=== PATIENT | female | born 1950 | race Caucasian/White ===

== ENCOUNTER → 2016-09-30 | Outpatient (CLI) | payer MEDICARE ==
[~2016-09-30] MED LIST: ASPI-496 PO; GABA300C10 PO; HYDR-3138 PO; LOSA100T6 PO; LOVA20TA2 PO
== END | disposition home or self-care (01) ==
LOC: PETCFH 07:45
PROVIDERS: ATTEND Specialist
DX: C78.01 Secondary malignant neoplasm of right lung (principal); M80.08XA Age-related osteoporosis with current pathological fracture, vertebra(e), initial encounter for fracture
CPT/HCPCS: 78306; A9503

== ENCOUNTER → 2016-09-30 | Outpatient (CLI) | payer MEDICARE ==
[~2016-09-30] MED LIST changes: +OMNIPAQUE 350 MG/ML, 100ML BOTTLE ONE
== END | disposition home or self-care (01) ==
LOC: CFH 07:44
PROVIDERS: ATTEND Specialist
DX: C78.01 Secondary malignant neoplasm of right lung (principal); C80.1 Malignant (primary) neoplasm, unspecified; J90 Pleural effusion, not elsewhere classified; N28.1 Cyst of kidney, acquired
CPT/HCPCS: 74177; Q9967

== ENCOUNTER → 2016-12-25 | Outpatient (CLI) | payer MEDICARE ==
[~2016-12-25] MED LIST changes: -HYDR-3138 PO; +HYDR-3237 PO; -OMNIPAQUE 350 MG/ML, 100ML BOTTLE ONE
== END | disposition home or self-care (01) ==
LOC: ROC 11:12 → EDSTATUS 13:53
PROVIDERS: ATTEND Radiology Radiation Oncology
DX: C79.51 Secondary malignant neoplasm of bone (principal); C77.8 Secondary and unspecified malignant neoplasm of lymph nodes of multiple regions; I89.0 Lymphedema, not elsewhere classified; Z85.3 Personal history of malignant neoplasm of breast
CPT/HCPCS: G0463

== ENCOUNTER 2017-03-16 10:23 | Inpatient (IN) | payer MEDICARE ==
[~2017-03-16] VITALS: Ht 157.5 cm; Wt 85.8 kg
[2017-03-16] MEDS ORDERED: ALBUTEROL SULFATE 2.5 MG/3 ML NPPB ONE (11:30)
[2017-03-16] MEDS ORDERED: SODIUM CHLORIDE FLUSH 10ML SYR IVF ONE (11:30)
[2017-03-16] MEDS ORDERED: ALBUTEROL/IPRATROPIUM 2.5MG/0.5MG, 3 ML NEB ONE (11:30)
[2017-03-16] MEDS ORDERED: IPRATROPIUM 0.5 MG/2.5 ML INHA NPPB ONE (11:30)
[2017-03-16] MEDS ORDERED: ALBUTEROL/IPRATROPIUM 2.5MG/0.5MG, 3 ML ONE (11:36)
[2017-03-16 12:28] LABS: HEMATOCRIT 29.6 % (34.6-47.8); HEMOGLOBIN 10.1 g/dL (11.7-16.4)
[2017-03-16 12:35] LABS: BLOOD UREA NITROGEN 19 mg/dL (7-18)
[2017-03-16 12:40] LABS: ASPARTATE AMINO TRANSFERASE 9 U/L (15-37)
[2017-03-16 12:43] LABS: IS PT STATUS REG ER OR PRE ER? YES
[2017-03-16] MEDS ORDERED: SODIUM CHLORIDE 0.9% 1,000 ML IV ONE (14:59)
[2017-03-16] MEDS ORDERED: SODIUM CHLORIDE FLUSH 10ML SYR IVF PRN (15:00)
[2017-03-16] MEDS ORDERED: DIAZEPAM 5 MG/ML, 2ML ONE (15:59)
[2017-03-16] MEDS ORDERED: DIAZEPAM 5 MG/ML, 2ML IV ONE (16:00)
[2017-03-16] MEDS ORDERED: LOVA40TA2 PO (16:02)
[2017-03-16] MEDS ORDERED: LETR2.5T PO (16:02)
[2017-03-16] MEDS ORDERED: CARV12.52 PO (16:02)
[2017-03-16] MEDS ORDERED: BUPR100T11 PO (16:02)
[2017-03-16] MEDS ORDERED: PARO20TA98 PO (16:02)
[2017-03-16] MEDS ORDERED: OXYC-307 PO (16:02)
[2017-03-16] MEDS ORDERED: DOCUSATE 100 MG CAPSULE PO PRN (17:00)
[2017-03-16] MEDS ORDERED: ACETAMINOPHEN 325 MG TABLET PO PRN (17:00)
[2017-03-16] MEDS ORDERED: BISACODYL 10 MG SUPP PR PRN (17:00)
[2017-03-16] MEDS ORDERED: PROMETHAZINE 25 MG/ML, 1ML IM PRN (17:00)
[2017-03-16] MEDS ORDERED: HYDROcodone/APAP 5/325 TABLET PO PRN (17:00)
[2017-03-16] MEDS ORDERED: POLYETHYLENE GLYCOL 17 GM PACKET PO PRN (17:00)
[2017-03-16] MEDS ORDERED: CEFTRIAXONE PMX 1GM/50ML 50 ML ONE (17:38)
[2017-03-16] MEDS: CEFTRIAXONE PMX 1GM/50ML 50 ML IV SCH (17:42)
[2017-03-16 17:51] LABS: IS PT STATUS REG ER OR PRE ER? YES
[2017-03-16 18:03] VITALS: BP 149/80
[2017-03-16 18:38] VITALS: BP 137/80
[2017-03-16] MEDS ORDERED: ALBUTEROL SULFATE 2.5 MG/3 ML ONE (19:55)
[2017-03-16] MEDS ORDERED: ALBUTEROL SULFATE 2.5 MG/3 ML NPPB PRN (20:30)
[2017-03-16] MEDS: CARVEDILOL 12.5 MG TABLET PO SCH (22:29)
[2017-03-16] MEDS: LOVASTATIN 40 MG TABLET PO SCH (22:29)
[2017-03-16] MEDS: FUROSEMIDE 20 MG/2 ML IV SCH (22:29)
[2017-03-16] MEDS: DOXYCYCLINE 100MG TABLET PO SCH (22:30)
[2017-03-16] MEDS: HEPARIN 5,000 UNITS/ML, 1ML SQ SCH (22:30)
[2017-03-16] MEDS: GABAPENTIN 300 MG CAPSULE PO SCH (22:30)
[2017-03-16] MEDS: LORazepam 2 MG/ML, 1ML IVPush PRN (22:31)
[2017-03-16] MEDS ORDERED: OMNIPAQUE 350 MG/ML, 100ML BOTTLE ONE (22:59)
[2017-03-16 23:10] LABS: IS PT STATUS REG ER OR PRE ER? NO
[2017-03-17] VITALS (7 sets, daily range): BP systolic 86–187; BP diastolic 46–111
[2017-03-17 04:47] LABS: BLOOD UREA NITROGEN 15 mg/dL (7-18)
[2017-03-17 04:52] LABS: HEMATOCRIT 29.1 % (34.6-47.8)
[2017-03-17 04:55] LABS: WHITE BLOOD COUNT 1.8 x10^3/uL (3.4-10)
[2017-03-17 04:58] LABS: ASPARTATE AMINO TRANSFERASE 13 U/L (15-37)
[2017-03-17] MEDS: HEPARIN 5,000 UNITS/ML, 1ML SQ SCH ×3 (05:40→22:30)
[2017-03-17 05:58] LABS: DIFF TOTAL CELLS COUNTED 100 CELL DIFF
[2017-03-17 06:01] LABS: ANISOCYTOSIS 1+; VERIFY COUNTS? YES
[2017-03-17 06:02] LABS: LARGE PLATELETS 1+; OVALOCYTES 1+
[2017-03-17] MEDS ORDERED: LABETALOL 5MG/ML, 20ML IVPush ONE (07:30)
[2017-03-17] MEDS: ALBUTEROL SULFATE 2.5 MG/3 ML NPPB SCH ×4 (08:00→20:00)
[2017-03-17] MEDS: FUROSEMIDE 20 MG/2 ML IV SCH ×2 (08:01→17:32)
[2017-03-17] MEDS ORDERED: LOSARTAN 50MG TABLET PO SCH (09:00)
[2017-03-17] MEDS: ASPIRIN 81 MG TABLET EC PO SCH (10:05)
[2017-03-17] MEDS: GABAPENTIN 300 MG CAPSULE PO SCH ×3 (10:05→22:30)
[2017-03-17] MEDS: PAROXETINE 20 MG TABLET PO SCH (10:05)
[2017-03-17] MEDS: CARVEDILOL 12.5 MG TABLET PO SCH (10:05)
[2017-03-17] MEDS: DOXYCYCLINE 100MG TABLET PO SCH (10:05)
[2017-03-17] MEDS: LETROZOLE 2.5 MG TABLET PO SCH (11:51)
[2017-03-17] MEDS: LORazepam 2 MG/ML, 1ML IVPush PRN ×2 (14:42→22:31)
[2017-03-17] MEDS: CEFTRIAXONE PMX 1GM/50ML 50 ML IV SCH (17:00)
[2017-03-17] MEDS: OXYcodone/APAP 10/325MG TABLET PO PRN (17:32)
[2017-03-17] MEDS ORDERED: POTASSIUM CHLORIDE 20 MEQ TAB.ER.PRT PO ONE (18:00)
[2017-03-17] MEDS: PIPERACILLIN/TAZO/PMX 3.375GM 50 ML IV SCH (18:14)
[2017-03-17] MEDS: LOVASTATIN 40 MG TABLET PO SCH (22:29)
[2017-03-18 01:42] VITALS: BP 153/81
[2017-03-18] MEDS: PIPERACILLIN/TAZO/PMX 3.375GM 50 ML IV SCH ×3 (02:03→16:49)
[2017-03-18 04:52] LABS: HEMATOCRIT 28.6 % (34.6-47.8); HEMOGLOBIN 9.8 g/dL (11.7-16.4); WHITE BLOOD COUNT 3.4 x10^3/uL (3.4-10)
[2017-03-18 05:05] LABS: ASPARTATE AMINO TRANSFERASE 13 U/L (15-37); BLOOD UREA NITROGEN 12 mg/dL (7-18)
[2017-03-18] MEDS: HEPARIN 5,000 UNITS/ML, 1ML SQ SCH ×3 (05:12→20:50)
[2017-03-18] MEDS: ALBUTEROL SULFATE 2.5 MG/3 ML NPPB SCH ×4 (07:06→20:00)
[2017-03-18 08:01] VITALS: BP 127/81
[2017-03-18] MEDS: LETROZOLE 2.5 MG TABLET PO SCH (08:26)
[2017-03-18] MEDS: FUROSEMIDE 20 MG/2 ML IV SCH (08:28)
[2017-03-18] MEDS: PAROXETINE 20 MG TABLET PO SCH (08:28)
[2017-03-18] MEDS: GABAPENTIN 300 MG CAPSULE PO SCH ×3 (08:28→20:50)
[2017-03-18] MEDS: ASPIRIN 81 MG TABLET EC PO SCH (08:28)
[2017-03-18 12:59] VITALS: BP 153/85
[2017-03-18] MEDS ORDERED: LIDOCAINE 1%, 20ML ONE (14:46)
[2017-03-18 15:37] LABS: CYTOLOGY BODY FLUID RECD INTO PATHOLOGY; CYTOLOGY BODY FLUID SOURCE THORACIC FLUID
[2017-03-18 19:45] VITALS: BP 113/76
[2017-03-18] MEDS: LOVASTATIN 40 MG TABLET PO SCH (20:50)
[2017-03-19 01:25] VITALS: BP 147/89
[2017-03-19] MEDS: PIPERACILLIN/TAZO/PMX 3.375GM 50 ML IV SCH ×3 (01:30→18:05)
[2017-03-19 04:46] LABS: HEMATOCRIT 28.4 % (34.6-47.8); HEMOGLOBIN 9.6 g/dL (11.7-16.4); WHITE BLOOD COUNT 2.8 x10^3/uL (3.4-10)
[2017-03-19 04:50] LABS: BLOOD UREA NITROGEN 13 mg/dL (7-18)
[2017-03-19] MEDS: HEPARIN 5,000 UNITS/ML, 1ML SQ SCH ×3 (05:00→20:04)
[2017-03-19] MEDS: LORazepam 2 MG/ML, 1ML IVPush PRN ×2 (06:04→20:04)
[2017-03-19] MEDS: ALBUTEROL SULFATE 2.5 MG/3 ML NPPB SCH ×4 (06:53→18:33)
[2017-03-19 07:42] VITALS: BP 134/18
[2017-03-19] MEDS: ASPIRIN 81 MG TABLET EC PO SCH (10:51)
[2017-03-19] MEDS: GABAPENTIN 300 MG CAPSULE PO SCH ×3 (10:51→20:04)
[2017-03-19] MEDS: PAROXETINE 20 MG TABLET PO SCH (10:51)
[2017-03-19] MEDS: LETROZOLE 2.5 MG TABLET PO SCH (10:55)
[2017-03-19 12:30] VITALS: BP 129/76
[2017-03-19 18:51] VITALS: BP 127/79
[2017-03-19] MEDS: LOVASTATIN 40 MG TABLET PO SCH (20:04)
[2017-03-20] MEDS: OXYcodone/APAP 10/325MG TABLET PO PRN
[2017-03-20 00:04] VITALS: BP 144/85
[2017-03-20] MEDS: PIPERACILLIN/TAZO/PMX 3.375GM 50 ML IV SCH ×3 (01:42→17:04)
[2017-03-20] MEDS: HEPARIN 5,000 UNITS/ML, 1ML SQ SCH ×3 (04:57→19:50)
[2017-03-20 05:53] LABS: BLOOD UREA NITROGEN 12 mg/dL (7-18)
[2017-03-20 06:08] LABS: HEMATOCRIT 27.2 % (34.6-47.8); HEMOGLOBIN 9.4 g/dL (11.7-16.4); WHITE BLOOD COUNT 3.1 x10^3/uL (3.4-10)
[2017-03-20 07:55] VITALS: BP 122/80
[2017-03-20] MEDS: ALBUTEROL SULFATE 2.5 MG/3 ML NPPB SCH (08:08)
[2017-03-20] MEDS: ASPIRIN 81 MG TABLET EC PO SCH (08:54)
[2017-03-20] MEDS: GABAPENTIN 300 MG CAPSULE PO SCH ×3 (08:55→19:50)
[2017-03-20] MEDS: PAROXETINE 20 MG TABLET PO SCH (08:55)
[2017-03-20] MEDS: LETROZOLE 2.5 MG TABLET PO SCH (09:28)
[2017-03-20] MEDS ORDERED: POTASSIUM CHLORIDE 20 MEQ TAB.ER.PRT PO ONE (10:30)
[2017-03-20 14:06] VITALS: BP 152/80
[2017-03-20] MEDS: LORazepam 2 MG/ML, 1ML IVPush PRN (18:48)
[2017-03-20] MEDS: LOVASTATIN 40 MG TABLET PO SCH (19:50)
[2017-03-20 20:07] VITALS: BP 141/81
[2017-03-21] MEDS: PIPERACILLIN/TAZO/PMX 3.375GM 50 ML IV SCH ×3 (01:08→17:28)
[2017-03-21 02:35] VITALS: BP 158/83
[2017-03-21 05:15] LABS: HEMATOCRIT 28.2 % (34.6-47.8); HEMOGLOBIN 9.7 g/dL (11.7-16.4); WHITE BLOOD COUNT 4.5 x10^3/uL (3.4-10)
[2017-03-21] MEDS: LORazepam 2 MG/ML, 1ML IVPush PRN ×2 (05:18→14:12)
[2017-03-21] MEDS: HEPARIN 5,000 UNITS/ML, 1ML SQ SCH ×3 (05:18→20:23)
[2017-03-21 05:21] LABS: BLOOD UREA NITROGEN 10 mg/dL (7-18)
[2017-03-21 07:52] VITALS: BP 144/82
[2017-03-21] MEDS: PAROXETINE 20 MG TABLET PO SCH (09:32)
[2017-03-21] MEDS: ASPIRIN 81 MG TABLET EC PO SCH (09:32)
[2017-03-21] MEDS: GABAPENTIN 300 MG CAPSULE PO SCH ×3 (09:32→20:22)
[2017-03-21] MEDS: LETROZOLE 2.5 MG TABLET PO SCH (09:37)
[2017-03-21] MEDS: OXYcodone/APAP 10/325MG TABLET PO PRN (12:16)
[2017-03-21 13:56] VITALS: BP 160/94
[2017-03-21] MEDS ORDERED: LOPERAMIDE 2 MG CAPSULE PO PRN (18:00)
[2017-03-21 18:44] VITALS: BP 146/85
[2017-03-21] MEDS: LOVASTATIN 40 MG TABLET PO SCH (20:22)
[2017-03-22] MEDS: LORazepam 2 MG/ML, 1ML IVPush PRN ×3 (00:11→19:40)
[2017-03-22] MEDS: PIPERACILLIN/TAZO/PMX 3.375GM 50 ML IV SCH ×4 (00:54→16:07)
[2017-03-22 00:56] VITALS: BP 135/81
[2017-03-22] MEDS: HEPARIN 5,000 UNITS/ML, 1ML SQ SCH ×3 (05:20→19:40)
[2017-03-22 07:44] VITALS: BP 156/98
[2017-03-22] MEDS: LETROZOLE 2.5 MG TABLET PO SCH (08:17)
[2017-03-22] MEDS: ASPIRIN 81 MG TABLET EC PO SCH (08:18)
[2017-03-22] MEDS: PAROXETINE 20 MG TABLET PO SCH (08:18)
[2017-03-22] MEDS: GABAPENTIN 300 MG CAPSULE PO SCH ×3 (08:18→19:40)
[2017-03-22 13:22] VITALS: BP 162/93
[2017-03-22] MEDS: LACTOBACILLUS CHEW TABLET PO SCH ×2 (17:33→19:40)
[2017-03-22 19:20] VITALS: BP 105/79
[2017-03-22] MEDS: LOVASTATIN 40 MG TABLET PO SCH (19:40)
[2017-03-23] MEDS: PIPERACILLIN/TAZO/PMX 3.375GM 50 ML IV SCH ×3 (00:48→17:01)
[2017-03-23 01:51] VITALS: BP 134/76
[2017-03-23] MEDS: HEPARIN 5,000 UNITS/ML, 1ML SQ SCH ×3 (05:20→20:46)
[2017-03-23] MEDS: OXYcodone/APAP 10/325MG TABLET PO PRN (05:21)
[2017-03-23] MEDS: LACTOBACILLUS CHEW TABLET PO SCH ×4 (05:21→20:46)
[2017-03-23] MEDS: ASPIRIN 81 MG TABLET EC PO SCH (08:25)
[2017-03-23] MEDS: GABAPENTIN 300 MG CAPSULE PO SCH ×3 (08:25→20:46)
[2017-03-23] MEDS: PAROXETINE 20 MG TABLET PO SCH (08:26)
[2017-03-23 08:32] VITALS: BP 134/83
[2017-03-23] MEDS: LETROZOLE 2.5 MG TABLET PO SCH (09:44)
[2017-03-23 12:17] VITALS: BP 136/81
[2017-03-23 19:50] VITALS: BP 136/86
[2017-03-23] MEDS: LORazepam 2 MG/ML, 1ML IVPush PRN (20:46)
[2017-03-23] MEDS: LOVASTATIN 40 MG TABLET PO SCH (20:46)
[2017-03-24 02:15] VITALS: BP 129/82
[2017-03-24 04:24] LABS: HEMATOCRIT 29.9 % (34.6-47.8); HEMOGLOBIN 10.2 g/dL (11.7-16.4); WHITE BLOOD COUNT 6.3 x10^3/uL (3.4-10)
[2017-03-24 04:31] LABS: BLOOD UREA NITROGEN 17 mg/dL (7-18)
[2017-03-24] MEDS: LACTOBACILLUS CHEW TABLET PO SCH ×4 (05:09→21:36)
[2017-03-24] MEDS: HEPARIN 5,000 UNITS/ML, 1ML SQ SCH ×3 (05:10→21:37)
[2017-03-24 08:15] VITALS: BP 140/85
[2017-03-24] MEDS: ASPIRIN 81 MG TABLET EC PO SCH (09:00)
[2017-03-24] MEDS: AMOXICILLIN/CLAV 875-125MG TABLET PO SCH ×2 (11:01→21:36)
[2017-03-24] MEDS: GABAPENTIN 300 MG CAPSULE PO SCH ×3 (11:02→21:36)
[2017-03-24] MEDS: PAROXETINE 20 MG TABLET PO SCH (11:02)
[2017-03-24] MEDS: LETROZOLE 2.5 MG TABLET PO SCH (11:06)
[2017-03-24 12:28] VITALS: BP 150/87
[2017-03-24] MEDS: OXYcodone/APAP 10/325MG TABLET PO PRN ×2 (12:36→18:00)
[2017-03-24] MEDS ORDERED: FENTANYL PF 100 MCG/2ML ONE (16:12)
[2017-03-24] MEDS ORDERED: MIDAZOLAM 1 MG/ML, 5ML ONE (16:13)
[2017-03-24] MEDS ORDERED: FLUMAZENIL 0.1 MG/1 ML, 5ML ONE (16:13)
[2017-03-24] MEDS ORDERED: NALOXONE 1 MG/ML, 2ML ONE (16:13)
[2017-03-24] MEDS ORDERED: LIDOCAINE 2%, 20ML ONE (16:15)
[2017-03-24 19:40] VITALS: BP 124/84
[2017-03-24] MEDS: LORazepam 2 MG/ML, 1ML IVPush PRN (20:00)
[2017-03-24] MEDS: LOVASTATIN 40 MG TABLET PO SCH (21:36)
[2017-03-24] MEDS: BUPROPION 75 MG TABLET PO SCH (21:36)
[2017-03-25 01:52] VITALS: BP 118/76
[2017-03-25] MEDS: HEPARIN 5,000 UNITS/ML, 1ML SQ SCH ×3 (04:50→20:10)
[2017-03-25] MEDS: OXYcodone/APAP 10/325MG TABLET PO PRN ×2 (04:50→18:17)
[2017-03-25] MEDS: LACTOBACILLUS CHEW TABLET PO SCH ×4 (05:58→20:09)
[2017-03-25 08:38] VITALS: BP 112/83
[2017-03-25] MEDS: LORazepam 2 MG/ML, 1ML IVPush ONE ×2 (09:14→09:36)
[2017-03-25] MEDS ORDERED: morphine SULFATE 10 MG/ML, 1ML ONE ×3 (09:29→11:28)
[2017-03-25] MEDS ORDERED: DOXYCYCLINE 500 MG in SODIUM CHLORIDE 0.9% 50 ML INTRAPL ONE (09:30)
[2017-03-25] MEDS ORDERED: LORazepam 2 MG/ML, 1ML IVPush ONE (09:30)
[2017-03-25] MEDS ORDERED: DOXYCYCLINE 500 MG in SODIUM CHLORIDE 0.9% 60 ML INTRAPL ONE (09:30)
[2017-03-25] MEDS ORDERED: LIDOCAINE 1%, 10ML INFIL ONE (09:30)
[2017-03-25] MEDS: LORazepam 2 MG/ML, 1ML IVPush PRN ×3 (09:36→23:58)
[2017-03-25] MEDS: MORPHINE SULFATE 4 MG/ML, 1ML IVPush PRN ×2 (10:46→11:31)
[2017-03-25] MEDS: LETROZOLE 2.5 MG TABLET PO SCH (13:23)
[2017-03-25] MEDS: GABAPENTIN 300 MG CAPSULE PO SCH ×3 (13:26→20:10)
[2017-03-25] MEDS: ASPIRIN 81 MG TABLET EC PO SCH (13:26)
[2017-03-25] MEDS: PAROXETINE 20 MG TABLET PO SCH (13:26)
[2017-03-25] MEDS: AMOXICILLIN/CLAV 875-125MG TABLET PO SCH ×2 (13:26→20:10)
[2017-03-25] MEDS: BUPROPION 75 MG TABLET PO SCH ×2 (13:26→20:10)
[2017-03-25 14:29] VITALS: BP 143/80
[2017-03-25 19:49] VITALS: BP 131/72
[2017-03-25] MEDS: LOVASTATIN 40 MG TABLET PO SCH (20:10)
[2017-03-26 01:13] VITALS: BP 127/81
[2017-03-26] MEDS: HEPARIN 5,000 UNITS/ML, 1ML SQ SCH ×3 (05:23→20:13)
[2017-03-26] MEDS: LACTOBACILLUS CHEW TABLET PO SCH ×4 (05:23→20:12)
[2017-03-26 08:27] VITALS: BP 125/80
[2017-03-26] MEDS: BUPROPION 75 MG TABLET PO SCH ×2 (10:12→20:12)
[2017-03-26] MEDS: AMOXICILLIN/CLAV 875-125MG TABLET PO SCH ×2 (10:12→20:12)
[2017-03-26] MEDS: ASPIRIN 81 MG TABLET EC PO SCH (10:12)
[2017-03-26] MEDS: GABAPENTIN 300 MG CAPSULE PO SCH ×3 (10:12→20:12)
[2017-03-26] MEDS: PAROXETINE 20 MG TABLET PO SCH (10:12)
[2017-03-26] MEDS: LETROZOLE 2.5 MG TABLET PO SCH (10:29)
[2017-03-26 12:59] VITALS: BP 130/80
[2017-03-26] MEDS: OXYcodone/APAP 10/325MG TABLET PO PRN (17:47)
[2017-03-26] MEDS: LORazepam 2 MG/ML, 1ML IVPush PRN (17:47)
[2017-03-26 19:04] VITALS: BP 125/83
[2017-03-26] MEDS: LOVASTATIN 40 MG TABLET PO SCH (20:12)
[2017-03-27 02:04] VITALS: BP 111/78
[2017-03-27] MEDS: LORazepam 2 MG/ML, 1ML IVPush PRN ×3 (02:13→21:40)
[2017-03-27] MEDS: HEPARIN 5,000 UNITS/ML, 1ML SQ SCH ×3 (05:46→22:15)
[2017-03-27] MEDS: LACTOBACILLUS CHEW TABLET PO SCH ×4 (05:46→21:20)
[2017-03-27 06:56] VITALS: BP 120/72
[2017-03-27] MEDS: LETROZOLE 2.5 MG TABLET PO SCH (10:03)
[2017-03-27] MEDS: ASPIRIN 81 MG TABLET EC PO SCH (10:04)
[2017-03-27] MEDS: AMOXICILLIN/CLAV 875-125MG TABLET PO SCH ×2 (10:04→21:20)
[2017-03-27] MEDS: BUPROPION 75 MG TABLET PO SCH ×2 (10:05→21:20)
[2017-03-27] MEDS: GABAPENTIN 300 MG CAPSULE PO SCH ×3 (10:05→21:20)
[2017-03-27] MEDS: PAROXETINE 20 MG TABLET PO SCH (10:05)
[2017-03-27 12:38] VITALS: BP 138/83
[2017-03-27] MEDS: OXYcodone/APAP 10/325MG TABLET PO PRN ×2 (14:30→21:40)
[2017-03-27 18:51] VITALS: BP 122/87
[2017-03-27] MEDS: LOVASTATIN 40 MG TABLET PO SCH (21:20)
[2017-03-28 01:37] VITALS: BP 114/79
[2017-03-28 04:27] LABS: HEMATOCRIT 27.7 % (34.6-47.8); HEMOGLOBIN 9.6 g/dL (11.7-16.4); WHITE BLOOD COUNT 5.5 x10^3/uL (3.4-10)
[2017-03-28 04:38] LABS: BLOOD UREA NITROGEN 24 mg/dL (7-18)
[2017-03-28] MEDS: LORazepam 2 MG/ML, 1ML IVPush PRN ×2 (04:40→18:51)
[2017-03-28] MEDS: LACTOBACILLUS CHEW TABLET PO SCH ×4 (06:04→20:27)
[2017-03-28] MEDS: HEPARIN 5,000 UNITS/ML, 1ML SQ SCH ×3 (06:05→21:38)
[2017-03-28 07:41] VITALS: BP 129/83
[2017-03-28] MEDS: GABAPENTIN 300 MG CAPSULE PO SCH ×3 (08:06→20:27)
[2017-03-28] MEDS: PAROXETINE 20 MG TABLET PO SCH (08:06)
[2017-03-28] MEDS: ASPIRIN 81 MG TABLET EC PO SCH (08:06)
[2017-03-28] MEDS: AMOXICILLIN/CLAV 875-125MG TABLET PO SCH ×2 (08:06→20:26)
[2017-03-28] MEDS: BUPROPION 75 MG TABLET PO SCH ×2 (08:06→20:27)
[2017-03-28] MEDS: LETROZOLE 2.5 MG TABLET PO SCH (08:10)
[2017-03-28 13:37] VITALS: BP 122/77
[2017-03-28 19:06] VITALS: BP 124/81
[2017-03-28] MEDS: OXYcodone/APAP 10/325MG TABLET PO PRN (20:27)
[2017-03-28] MEDS: LOVASTATIN 40 MG TABLET PO SCH (20:27)
[2017-03-29 01:42] VITALS: BP 130/80
[2017-03-29] MEDS: LACTOBACILLUS CHEW TABLET PO SCH ×4 (06:25→20:17)
[2017-03-29] MEDS: HEPARIN 5,000 UNITS/ML, 1ML SQ SCH ×3 (06:25→20:17)
[2017-03-29 07:49] VITALS: BP 139/81
[2017-03-29] MEDS: ASPIRIN 81 MG TABLET EC PO SCH (10:27)
[2017-03-29] MEDS: PAROXETINE 20 MG TABLET PO SCH (10:27)
[2017-03-29] MEDS: AMOXICILLIN/CLAV 875-125MG TABLET PO SCH ×2 (10:27→20:16)
[2017-03-29] MEDS: GABAPENTIN 300 MG CAPSULE PO SCH ×3 (10:27→20:16)
[2017-03-29] MEDS: BUPROPION 75 MG TABLET PO SCH ×2 (10:27→20:17)
[2017-03-29] MEDS: LETROZOLE 2.5 MG TABLET PO SCH (10:59)
[2017-03-29] MEDS: LORazepam 2 MG/ML, 1ML IVPush PRN ×2 (14:10→20:17)
[2017-03-29] MEDS: OXYcodone/APAP 10/325MG TABLET PO PRN ×2 (14:10→21:14)
[2017-03-29 15:48] VITALS: BP 117/76
[2017-03-29 19:06] VITALS: BP 114/76
[2017-03-29] MEDS: LOVASTATIN 40 MG TABLET PO SCH (20:17)
[2017-03-30] VITALS: BP 146/89
[2017-03-30 04:48] LABS: HEMATOCRIT 26.8 % (34.6-47.8); HEMOGLOBIN 9.1 g/dL (11.7-16.4); WHITE BLOOD COUNT 4.7 x10^3/uL (3.4-10)
[2017-03-30 04:55] LABS: BLOOD UREA NITROGEN 19 mg/dL (7-18)
[2017-03-30] MEDS: LACTOBACILLUS CHEW TABLET PO SCH ×2 (06:11→11:33)
[2017-03-30] MEDS: HEPARIN 5,000 UNITS/ML, 1ML SQ SCH ×2 (06:11→14:23)
[2017-03-30 07:29] VITALS: BP 134/82
[2017-03-30] MEDS: GABAPENTIN 300 MG CAPSULE PO SCH (08:31)
[2017-03-30] MEDS: PAROXETINE 20 MG TABLET PO SCH (08:31)
[2017-03-30] MEDS: AMOXICILLIN/CLAV 875-125MG TABLET PO SCH (08:31)
[2017-03-30] MEDS: ASPIRIN 81 MG TABLET EC PO SCH (08:31)
[2017-03-30] MEDS: BUPROPION 75 MG TABLET PO SCH (08:32)
[2017-03-30] MEDS: LETROZOLE 2.5 MG TABLET PO SCH (08:36)
[2017-03-30] MEDS ORDERED: AMOX1TAB64 PO (11:47)
[2017-03-30] MEDS ORDERED: OXYC-302 PO (11:48)
[2017-03-30 15:00] VITALS: BP 148/85
== END 2017-03-30 16:00 | disposition home or self-care (01) | DRG 597 ==
LOC: ED 14:14 → EDIP 14:59 → 3NW 17:54
PROVIDERS: ADMIT Hospitalist; ATTEND Hospitalist
PROC: 0W993ZZ Drainage of Right Pleural Cavity, Percutaneous Approach (ICD-10-PCS; principal; 2017-03-18)
PROC: 0W9930Z Drainage of Right Pleural Cavity with Drainage Device, Percutaneous Approach (ICD-10-PCS; 2017-03-24)
DX: C50.919 Malignant neoplasm of unspecified site of unspecified female breast (principal); J69.0 Pneumonitis due to inhalation of food and vomit; J96.91 Respiratory failure, unspecified with hypoxia; D61.818 Other pancytopenia; J91.0 Malignant pleural effusion; D68.59 Other primary thrombophilia; E44.1 Mild protein-calorie malnutrition; J98.11 Atelectasis; I50.9 Heart failure, unspecified; I11.0 Hypertensive heart disease with heart failure; E86.0 Dehydration; F41.9 Anxiety disorder, unspecified; R62.7 Adult failure to thrive; I89.0 Lymphedema, not elsewhere classified; Z66 Do not resuscitate; D75.89 Other specified diseases of blood and blood-forming organs; E78.5 Hyperlipidemia, unspecified; Z90.10 Acquired absence of unspecified breast and nipple; Z90.49 Acquired absence of other specified parts of digestive tract; Z90.710 Acquired absence of both cervix and uterus; Z80.49 Family history of malignant neoplasm of other genital organs; Z85.3 Personal history of malignant neoplasm of breast; Z87.891 Personal history of nicotine dependence; Z80.3 Family history of malignant neoplasm of breast; Z88.3 Allergy status to other anti-infective agents; Z68.34 Body mass index [BMI] 34.0-34.9, adult; Z87.01 Personal history of pneumonia (recurrent); Z92.21 Personal history of antineoplastic chemotherapy; Z92.3 Personal history of irradiation
CPT/HCPCS: 32551; 32555; 32557; 36415; 71010; 71250; 71275; 74220; 74230; 80048; 80053; 81003; 82040; 82042; 82607; 82945; 83615; 83690; 83735; 83880; 84100; 84145; 84443; 84484; 85025; 85610; 85730; 87040; 87070; 87205; 87324; 88112; 88305; 88341; 88342; 93005; 93306; 94640; 96361; 96374; 96375; J0696; J1644; J2250; J2543; J2550; J3010; J3360; J3490; J7613; J7620; Q9967; C1729; C1769; G0461; J1940; J2060; J2310; J7030

== ENCOUNTER → 2017-06-04 | Outpatient (CLI) | payer MEDICARE ==
[~2017-06-04] MED LIST changes: +AMOX1TAB64 PO; +BUPR100T11 PO; +CARV12.52 PO; +LETR2.5T PO; +LOVA40TA2 PO; +OXYC-302 PO; +OXYC-307 PO; +PARO20TA98 PO
== END | disposition home or self-care (01) ==
LOC: ROC 13:57
PROVIDERS: ATTEND Radiology Radiation Oncology
DX: Z08 Encounter for follow-up examination after completed treatment for malignant neoplasm (principal); C77.3 Secondary and unspecified malignant neoplasm of axilla and upper limb lymph nodes; C50.911 Malignant neoplasm of unspecified site of right female breast; I89.0 Lymphedema, not elsewhere classified; Z92.3 Personal history of irradiation; Z79.82 Long term (current) use of aspirin
CPT/HCPCS: G0463

== ENCOUNTER → 2017-11-09 | Outpatient (CLI) | payer MEDICARE ==
[~2017-11-09] MED LIST changes: +OMNIPAQUE 350 MG/ML, 150 ML BOTTLE ONE
== END | disposition home or self-care (01) ==
LOC: CFH 11:16
PROVIDERS: ATTEND Specialist
DX: C79.51 Secondary malignant neoplasm of bone (principal); C50.911 Malignant neoplasm of unspecified site of right female breast; N28.1 Cyst of kidney, acquired; J90 Pleural effusion, not elsewhere classified; J98.11 Atelectasis; J47.9 Bronchiectasis, uncomplicated
CPT/HCPCS: 70491; 71260; 74177; Q9967

== ENCOUNTER 2018-06-22 08:56 | Outpatient (CLI) | payer MEDICARE ==
[~2018-06-22 08:56] MED LIST changes: +ALBU8.5H8 INH; +AZIT500T2 PO; +CA C1TAB62 PO; +LACT1CAP43 PO; +LOSA100T14 PO; -LOSA100T6 PO; +LOSA25TA25 PO; +OMEP-110 PO; -OMNIPAQUE 350 MG/ML, 150 ML BOTTLE ONE; +PALB100C PO; +[UNRECOGNIZED DRUG - CODE] PO
[2018-06-22] MEDS ORDERED: OMNIPAQUE 350 MG/ML, 100ML BOTTLE ONE (11:18)
== END 2018-06-22 23:59 | disposition home or self-care (01) ==
LOC: CFH 08:56
PROVIDERS: ATTEND Internal Medicine Hematology & Oncology
DX: J47.9 Bronchiectasis, uncomplicated (principal); C50.919 Malignant neoplasm of unspecified site of unspecified female breast; J98.4 Other disorders of lung
CPT/HCPCS: 71260; 74177; Q9967

== ENCOUNTER → 2018-09-16 | Outpatient (CLI) | payer MEDICARE ==
[2018-09-16 09:25] LABS: ALBUMIN 3.7 g/dL (3.4-5.0); ANION GAP 8 mmol/L (5-15); CALCIUM 8.6 mg/dL (8.5-10.1); CHLORIDE 112 mmol/L (98-107)
[2018-09-16 09:28] LABS: ALANINE AMINOTRANSFERASE 18 U/L (12-78); ALKALINE PHOSPHATASE 50 U/L (45-117); BILIRUBIN,TOTAL 0.5 mg/dL (0.2-1.0); CREATININE 1.21 mg/dL (0.55-1.02); TOTAL PROTEIN 6.9 g/dL (6.4-8.2)
== END | disposition home or self-care (01) ==
LOC: LAB 08:54
PROVIDERS: ATTEND Internal Medicine Hematology & Oncology
DX: C50.919 Malignant neoplasm of unspecified site of unspecified female breast (principal); C79.51 Secondary malignant neoplasm of bone; C78.01 Secondary malignant neoplasm of right lung; Z17.0 Estrogen receptor positive status [ER+]
CPT/HCPCS: 36415; 80053

== ENCOUNTER 2018-11-01 06:37 | Outpatient (CLI) | payer MEDICARE ==
[~2018-11-01] VITALS: Ht 157.5 cm; Wt 79.5 kg
[2018-11-01 12:00] VITALS: BP 113/63
[2018-11-01 12:43] LABS: CHLORIDE 109 mmol/L (98-107)
[2018-11-01 12:49] LABS: ALANINE AMINOTRANSFERASE 18 U/L (12-78); ALBUMIN 3.5 g/dL (3.4-5.0); ALKALINE PHOSPHATASE 55 U/L (45-117); ANION GAP 7 mmol/L (5-15); BILIRUBIN,TOTAL 0.6 mg/dL (0.2-1.0); CALCIUM 8.5 mg/dL (8.5-10.1); CREATININE 1.38 mg/dL (0.55-1.02); TOTAL PROTEIN 6.6 g/dL (6.4-8.2)
[2018-11-01 13:18] LABS: MEAN CORPUSCULAR HEMOGLOBIN 34.8 pg (27.0-34.8); MEAN CORPUSCULAR HGB CONC 33.9 g/dL (32.4-35.8); MEAN CORPUSCULAR VOLUME 102.6 fL (80-100); MEAN PLATELET VOLUME 6.4 fL (7.4-10.4); PLATELET COUNT 151 x10^3/uL (130-400); RED BLOOD COUNT 2.82 x10^6/uL (3.82-5.3)
[2018-11-01 13:21] LABS: MD YES
[2018-11-01 13:24] LABS: BAND#(MANUAL) 0.02 x10^3/uL; BANDS%(MANUAL) 1 % (0-7); BASOS#(MANUAL) 0.03 x10^3/uL (0-0.1); BASOS% (MANUAL) 2 % (0-1); EOS#(MANUAL) 0.07 x10^3/uL (0.0-0.4); EOS% (MANUAL) 4 % (1-7); LYMPH#(MANUAL) 0.71 x10^3/uL (1-3.4); LYMPHS% (MANUAL) 42 % (22-44); MONOS#(MANUAL) 0.14 x10^3/uL (0.3-2.7); MONOS% (MANUAL) 8 % (2-9); SEG#(MANUAL) 0.73 x10^3/uL (1.8-6.8); SEGS% (MANUAL) 43 % (42-75)
[2018-11-01 13:26] LABS: <PLATELET ESTIMATE> ADEQUATE; <PLT MORPHOLOGY> NORMAL PLT MORPH; <RBC MORPHOLOGY> NORMAL
[2018-11-01] MEDS ORDERED: ZOLEDRONIC ACID 3 MG in SODIUM CHLORIDE 0.9% 100 ML IVPB ONE (13:30)
[2018-11-01] MEDS ORDERED: FULVESTRANT 250 MG/5 ML IM ONE ×3 (14:00→14:30)
== END 2018-11-01 23:59 | disposition home or self-care (01) ==
LOC: INFUSION 06:37
PROVIDERS: ATTEND Internal Medicine Hematology & Oncology
DX: Z51.11 Encounter for antineoplastic chemotherapy (principal); C50.911 Malignant neoplasm of unspecified site of right female breast; C79.51 Secondary malignant neoplasm of bone; C78.01 Secondary malignant neoplasm of right lung; Z17.0 Estrogen receptor positive status [ER+]
CPT/HCPCS: 36415; 36591; 80053; 85025; 96374; 96402; J3489; J9395; 96365

== ENCOUNTER 2018-11-29 11:45 | Outpatient (CLI) | payer MEDICARE ==
[~2018-11-29] VITALS: Ht 157.5 cm; Wt 80.0 kg
[2018-11-29 12:05] VITALS: BP 169/80
== END 2018-11-29 23:59 | disposition home or self-care (01) ==
LOC: INFUSION 11:45
PROVIDERS: ATTEND Internal Medicine Hematology & Oncology
DX: Z51.11 Encounter for antineoplastic chemotherapy (principal); C50.919 Malignant neoplasm of unspecified site of unspecified female breast; C78.01 Secondary malignant neoplasm of right lung; C79.51 Secondary malignant neoplasm of bone; Z17.0 Estrogen receptor positive status [ER+]
CPT/HCPCS: 36415; 36591; 80053; 85025; 96365; 96402; J3489; J9395; 96367

== ENCOUNTER 2019-01-24 11:47 | Outpatient (CLI) | payer MEDICARE ==
[~2019-01-24] VITALS: Ht 157.5 cm; Wt 80.8 kg
[2019-01-24 12:54] LABS: ALANINE AMINOTRANSFERASE 16 U/L (12-78); ALBUMIN 3.5 g/dL (3.4-5.0); ANION GAP 8 mmol/L (5-15); CALCIUM 8.6 mg/dL (8.5-10.1); CHLORIDE 111 mmol/L (98-107); CREATININE 1.61 mg/dL (0.55-1.02)
[2019-01-24 12:57] LABS: ALKALINE PHOSPHATASE 44 U/L (45-117); BILIRUBIN,TOTAL 0.6 mg/dL (0.2-1.0); MEAN CORPUSCULAR HEMOGLOBIN 36.9 pg (27.0-34.8); MEAN CORPUSCULAR HGB CONC 34.5 g/dL (32.4-35.8); MEAN CORPUSCULAR VOLUME 106.7 fL (80-100); MEAN PLATELET VOLUME 6.7 fL (7.4-10.4); PLATELET COUNT 167 x10^3/uL (130-400); RED BLOOD COUNT 2.57 x10^6/uL (3.82-5.3); RED CELL DISTRIBUTION WIDTH 14.4 % (9.6-15.2); TOTAL PROTEIN 6.8 g/dL (6.4-8.2)
[2019-01-24 12:58] VITALS: BP 148/80
[2019-01-24 13:13] LABS: MD YES
[2019-01-24 13:16] LABS: EOS#(MANUAL) 0.04 x10^3/uL (0.0-0.4); EOS% (MANUAL) 2 % (1-7); LYMPH#(MANUAL) 0.74 x10^3/uL (1-3.4); LYMPHS% (MANUAL) 39 % (22-44); MONOS% (MANUAL) 5 % (2-9); OVALOCYTES 1+; SEG#(MANUAL) 1.03 x10^3/uL (1.8-6.8); SEGS% (MANUAL) 54 % (42-75)
[2019-01-24 13:17] LABS: <PLATELET ESTIMATE> ADEQUATE; SMALL PLATELETS 1+
[2019-01-24] MEDS ORDERED: FULVESTRANT 250 MG/5 ML IM ONE (14:00)
[2019-01-24] MEDS ORDERED: ZOLEDRONIC ACID 3 MG in SODIUM CHLORIDE 0.9% 100 ML IVPB ONE (14:00)
== END 2019-01-24 23:59 | disposition home or self-care (01) ==
LOC: INFUSION 11:47
PROVIDERS: ATTEND Internal Medicine Hematology & Oncology
DX: Z51.11 Encounter for antineoplastic chemotherapy (principal); C78.01 Secondary malignant neoplasm of right lung; C79.51 Secondary malignant neoplasm of bone; C50.919 Malignant neoplasm of unspecified site of unspecified female breast; Z17.0 Estrogen receptor positive status [ER+]
CPT/HCPCS: 36415; 36591; 80053; 85025; 96365; 96402; J3489; J9395; 96401

== ENCOUNTER 2019-02-25 06:40 | Outpatient (CLI) | payer MEDICARE ==
[~2019-02-25] VITALS: Ht 157.5 cm; Wt 78.1 kg
[2019-02-25 09:50] VITALS: BP 156/83
[2019-02-25 10:33] LABS: MEAN CORPUSCULAR HEMOGLOBIN 36.2 pg (27.0-34.8); MEAN CORPUSCULAR HGB CONC 33.8 g/dL (32.4-35.8); MEAN CORPUSCULAR VOLUME 107.1 fL (80-100); MEAN PLATELET VOLUME 6.3 fL (7.4-10.4); PLATELET COUNT 260 x10^3/uL (130-400); RED BLOOD COUNT 2.74 x10^6/uL (3.82-5.3); RED CELL DISTRIBUTION WIDTH 15.7 % (9.6-15.2)
[2019-02-25 10:46] LABS: ALBUMIN 3.5 g/dL (3.4-5.0); ANION GAP 8 mmol/L (5-15); CHLORIDE 112 mmol/L (98-107)
[2019-02-25 10:48] LABS: BASOPHILS # (AUTO) 0.02 x10^3/uL (0-0.1); BASOPHILS % (AUTO) 1 % (0-1); EOSINOPHILS # (AUTO) 0.02 x10^3/uL (0-0.4); EOSINOPHILS % (AUTO) 1 % (1-7); LYMPHOCYTES # (AUTO) 0.65 x10^3/uL (1-3.4); LYMPHOCYTES % (AUTO) 24 % (22-44); MD SCAN; MONOCYTES # (AUTO) 0.42 x10^3/uL (0.2-0.8); MONOCYTES % (AUTO) 16 % (2-9); NEUTROPHILS # (AUTO) 1.57 x10^3/uL (1.8-6.8); NEUTROPHILS % (AUTO) 59 % (42-75)
[2019-02-25 10:49] LABS: ALANINE AMINOTRANSFERASE 12 U/L (12-78); ALKALINE PHOSPHATASE 56 U/L (45-117); BILIRUBIN,TOTAL 0.6 mg/dL (0.2-1.0); CREATININE 1.57 mg/dL (0.55-1.02)
[2019-02-25] MEDS ORDERED: ZOLEDRONIC ACID 3 MG in SODIUM CHLORIDE 0.9% 100 ML IVPB ONE (12:00)
[2019-02-25] MEDS ORDERED: FULVESTRANT 250 MG/5 ML IM ONE (12:00)
== END 2019-02-25 23:59 | disposition home or self-care (01) ==
LOC: INFUSION 06:40
PROVIDERS: ATTEND Internal Medicine Hematology & Oncology
DX: Z51.11 Encounter for antineoplastic chemotherapy (principal); C50.919 Malignant neoplasm of unspecified site of unspecified female breast; C78.01 Secondary malignant neoplasm of right lung; C79.51 Secondary malignant neoplasm of bone; I50.9 Heart failure, unspecified; Z17.0 Estrogen receptor positive status [ER+]; Z87.891 Personal history of nicotine dependence
CPT/HCPCS: 36415; 36591; 80053; 85025; 96374; 96402; J3489; J9395; 96365; 96401

== ENCOUNTER 2019-03-21 12:28 | Outpatient (CLI) | payer MEDICARE ==
[~2019-03-21] VITALS: Ht 157.5 cm; Wt 79.3 kg
[2019-03-21 11:35] VITALS: BP 146/85
[2019-03-21 12:07] LABS: MEAN CORPUSCULAR HEMOGLOBIN 34.6 pg (27.0-34.8); MEAN CORPUSCULAR HGB CONC 33.1 g/dL (32.4-35.8); MEAN CORPUSCULAR VOLUME 104.7 fL (80-100); MEAN PLATELET VOLUME 6.3 fL (7.4-10.4); PLATELET COUNT 215 x10^3/uL (130-400); RED BLOOD COUNT 2.85 x10^6/uL (3.82-5.3); RED CELL DISTRIBUTION WIDTH 14.7 % (9.6-15.2)
[2019-03-21 12:22] LABS: ALBUMIN 3.3 g/dL (3.4-5.0); ANION GAP 5 mmol/L (5-15); CALCIUM 8.2 mg/dL (8.5-10.1); CHLORIDE 109 mmol/L (98-107)
[2019-03-21 12:26] LABS: ALANINE AMINOTRANSFERASE 17 U/L (12-78); ALKALINE PHOSPHATASE 57 U/L (45-117); BILIRUBIN,TOTAL 0.4 mg/dL (0.2-1.0); CREATININE 1.69 mg/dL (0.55-1.02); TOTAL PROTEIN 6.9 g/dL (6.4-8.2)
[2019-03-21 12:48] LABS: BASOPHILS # (AUTO) 0.02 x10^3/uL (0-0.1); BASOPHILS % (AUTO) 1 % (0-1); EOSINOPHILS # (AUTO) 0.04 x10^3/uL (0-0.4); EOSINOPHILS % (AUTO) 2 % (1-7); LYMPHOCYTES # (AUTO) 0.75 x10^3/uL (1-3.4); LYMPHOCYTES % (AUTO) 33 % (22-44); MD SCAN; MONOCYTES # (AUTO) 0.18 x10^3/uL (0.2-0.8); MONOCYTES % (AUTO) 8 % (2-9); NEUTROPHILS % (AUTO) 57 % (42-75)
[2019-03-21] MEDS ORDERED: FULVESTRANT 250 MG/5 ML IM ONE (13:00)
[2019-03-21] MEDS ORDERED: ZOLEDRONIC ACID 3 MG in SODIUM CHLORIDE 0.9% 100 ML IVPB ONE (13:30)
== END 2019-03-21 23:59 | disposition home or self-care (01) ==
LOC: INFUSION 12:28
PROVIDERS: ATTEND Internal Medicine Hematology & Oncology
DX: Z51.11 Encounter for antineoplastic chemotherapy (principal); C50.919 Malignant neoplasm of unspecified site of unspecified female breast; C79.51 Secondary malignant neoplasm of bone; C78.01 Secondary malignant neoplasm of right lung; I50.9 Heart failure, unspecified; Z87.891 Personal history of nicotine dependence; Z17.0 Estrogen receptor positive status [ER+]
CPT/HCPCS: 36415; 36591; 80053; 85025; 96365; 96402; J3489; J9395; 96401

== ENCOUNTER 2019-04-06 10:53 | Emergency (ER) | payer MEDICARE ==
[~2019-04-06] VITALS: Ht 157.5 cm; Wt 78.8 kg
[2019-04-06 13:13] LABS: CULTURE INDICATED? YES; MICROSCOPIC INDICATED
[2019-04-06 13:20] LABS: MEAN CORPUSCULAR HEMOGLOBIN 34.5 pg (27.0-34.8); MEAN CORPUSCULAR HGB CONC 33.1 g/dL (32.4-35.8); MEAN CORPUSCULAR VOLUME 104.3 fL (80-100); MEAN PLATELET VOLUME 6.2 fL (7.4-10.4); PLATELET COUNT 401 x10^3/uL (130-400); RED BLOOD COUNT 2.92 x10^6/uL (3.82-5.3); RED CELL DISTRIBUTION WIDTH 15.8 % (9.6-15.2)
[2019-04-06 13:21] LABS: ALBUMIN 3.3 g/dL (3.4-5.0); ANION GAP 4 mmol/L (5-15); CALCIUM 8.6 mg/dL (8.5-10.1); CHLORIDE 110 mmol/L (98-107); CREATININE 1.62 mg/dL (0.55-1.02)
[2019-04-06 13:22] VITALS: BP 130/56
--- NOTE | 2019-04-06 13:23 | NUR ---
PT IN CT.
--- NOTE | 2019-04-06 13:23 | NUR ---
PT WENT TO PCP AND THE PCP THOUGHT "SHE WAS ACTING A LITTLE ALTERED. YOU SHOULD GO TO THE ER". PT CAME IN FOR LEG PAIN. HX OF BREAST CANCER. 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 CALL LIGHT WITHIN REACH
[2019-04-06 13:57] LABS: BASOPHILS % (AUTO) 0 % (0-1); EOSINOPHILS # (AUTO) 0.06 x10^3/uL (0-0.4); EOSINOPHILS % (AUTO) 1 % (1-7); LYMPHOCYTES # (AUTO) 0.75 x10^3/uL (1-3.4); LYMPHOCYTES % (AUTO) 16 % (22-44); MD SCAN; MONOCYTES # (AUTO) 0.24 x10^3/uL (0.2-0.8); MONOCYTES % (AUTO) 5 % (2-9); NEUTROPHILS # (AUTO) 3.82 x10^3/uL (1.8-6.8); NEUTROPHILS % (AUTO) 78 % (42-75)
== END 2019-04-06 14:14 | disposition home or self-care (01) ==
LOC: ED 14:00
DX: M71.21 Synovial cyst of popliteal space [Baker], right knee (principal); N30.00 Acute cystitis without hematuria; M25.461 Effusion, right knee; M79.661 Pain in right lower leg; I10 Essential (primary) hypertension; Z90.710 Acquired absence of both cervix and uterus; Z85.3 Personal history of malignant neoplasm of breast
CPT/HCPCS: 36415; 70450; 80048; 81001; 82040; 85025; 87077; 87086; 87186; 99284

== ENCOUNTER → 2019-04-21 | Outpatient (CLI) | payer MEDICARE ==
[~2019-04-21] VITALS: Ht 157.5 cm; Wt 75.0 kg
[~2019-04-21] MED LIST changes: +FULVESTRANT 250 MG/5 ML IM ONE; +ZOLEDRONIC ACID 3 MG in SODIUM CHLORIDE 0.9% 100 ML IVPB ONE
[2019-04-21 13:00] VITALS: BP 106/69
[2019-04-21 14:57] LABS: BASOPHILS # (AUTO) 0.02 x10^3/uL (0-0.1); BASOPHILS % (AUTO) 1 % (0-1); EOSINOPHILS # (AUTO) 0.03 x10^3/uL (0-0.4); EOSINOPHILS % (AUTO) 1 % (1-7); LYMPHOCYTES # (AUTO) 0.56 x10^3/uL (1-3.4); LYMPHOCYTES % (AUTO) 16 % (22-44); MD NO; MEAN CORPUSCULAR HEMOGLOBIN 35.2 pg (27.0-34.8); MEAN CORPUSCULAR HGB CONC 33.4 g/dL (32.4-35.8); MEAN CORPUSCULAR VOLUME 105.3 fL (80-100); MEAN PLATELET VOLUME 6.7 fL (7.4-10.4); MONOCYTES # (AUTO) 0.14 x10^3/uL (0.2-0.8); MONOCYTES % (AUTO) 4 % (2-9); NEUTROPHILS # (AUTO) 2.74 x10^3/uL (1.8-6.8); NEUTROPHILS % (AUTO) 79 % (42-75); PLATELET COUNT 216 x10^3/uL (130-400); RED BLOOD COUNT 2.81 x10^6/uL (3.82-5.3); RED CELL DISTRIBUTION WIDTH 15.7 % (9.6-15.2)
[2019-04-21 15:02] LABS: ALANINE AMINOTRANSFERASE 19 U/L (12-78); ALBUMIN 3.3 g/dL (3.4-5.0); ANION GAP 10 mmol/L (5-15); CALCIUM 8.8 mg/dL (8.5-10.1); CHLORIDE 108 mmol/L (98-107); CREATININE 1.95 mg/dL (0.55-1.02)
[2019-04-21 15:05] LABS: ALKALINE PHOSPHATASE 69 U/L (45-117)
== END | disposition home or self-care (01) ==
LOC: INFUSION 12:27
PROVIDERS: ATTEND Internal Medicine Hematology & Oncology
DX: Z51.11 Encounter for antineoplastic chemotherapy (principal); C50.919 Malignant neoplasm of unspecified site of unspecified female breast; C79.51 Secondary malignant neoplasm of bone; C78.01 Secondary malignant neoplasm of right lung; I11.0 Hypertensive heart disease with heart failure; I50.9 Heart failure, unspecified; Z87.891 Personal history of nicotine dependence; Z90.710 Acquired absence of both cervix and uterus; Z17.0 Estrogen receptor positive status [ER+]
CPT/HCPCS: 36415; 36591; 80053; 85025; 96402; J9395

== ENCOUNTER → 2019-05-23 | Outpatient (CLI) | payer MEDICARE ==
[~2019-05-23] VITALS: Ht 157.5 cm; Wt 73.9 kg
[~2019-05-23] MED LIST changes: -ZOLEDRONIC ACID 3 MG in SODIUM CHLORIDE 0.9% 100 ML IVPB ONE
[2019-05-23 11:55] VITALS: BP 103/67
[2019-05-23 13:09] LABS: ALBUMIN 3.3 g/dL (3.4-5.0); ANION GAP 5 mmol/L (5-15); CALCIUM 8.7 mg/dL (8.5-10.1); CHLORIDE 108 mmol/L (98-107)
[2019-05-23 13:12] LABS: CREATININE 1.52 mg/dL (0.55-1.02)
[2019-05-23 13:13] LABS: ALANINE AMINOTRANSFERASE 15 U/L (12-78); ALKALINE PHOSPHATASE 60 U/L (45-117); BILIRUBIN,TOTAL 0.9 mg/dL (0.2-1.0); TOTAL PROTEIN 7.1 g/dL (6.4-8.2)
[2019-05-23 13:38] LABS: MEAN CORPUSCULAR HGB CONC 33.8 g/dL (32.4-35.8); MEAN CORPUSCULAR VOLUME 103.6 fL (80-100); MEAN PLATELET VOLUME 6.7 fL (7.4-10.4); PLATELET COUNT 174 x10^3/uL (130-400); RED BLOOD COUNT 2.71 x10^6/uL (3.82-5.3); RED CELL DISTRIBUTION WIDTH 16.5 % (9.6-15.2)
[2019-05-23 13:40] LABS: BASOPHILS # (AUTO) 0.02 x10^3/uL (0-0.1); BASOPHILS % (AUTO) 1 % (0-1); EOSINOPHILS # (AUTO) 0.04 x10^3/uL (0-0.4); EOSINOPHILS % (AUTO) 2 % (1-7); LYMPHOCYTES # (AUTO) 0.48 x10^3/uL (1-3.4); LYMPHOCYTES % (AUTO) 28 % (22-44); MD MORPH REVIEW ONLY; MONOCYTES # (AUTO) 0.14 x10^3/uL (0.2-0.8); MONOCYTES % (AUTO) 8 % (2-9); NEUTROPHILS # (AUTO) 1.07 x10^3/uL (1.8-6.8); NEUTROPHILS % (AUTO) 61 % (42-75)
[2019-05-23 13:41] LABS: <PLATELET ESTIMATE> ADEQUATE; <PLT MORPHOLOGY> NORMAL PLT MORPH; ANISOCYTOSIS 1+; OVALOCYTES 1+; POLYCHROMASIA 1+
== END | disposition home or self-care (01) ==
LOC: INFUSION 08:05
PROVIDERS: ATTEND Internal Medicine Hematology & Oncology
DX: Z51.11 Encounter for antineoplastic chemotherapy (principal); C79.51 Secondary malignant neoplasm of bone; I11.0 Hypertensive heart disease with heart failure; I50.9 Heart failure, unspecified; Z87.891 Personal history of nicotine dependence; Z85.3 Personal history of malignant neoplasm of breast; Z90.710 Acquired absence of both cervix and uterus; Z85.118 Personal history of other malignant neoplasm of bronchus and lung
CPT/HCPCS: 36415; 80053; 85025; 96402; J9395

== ENCOUNTER → 2019-06-03 | Outpatient (CLI) | payer MEDICARE ==
[~2019-06-03] MED LIST changes: -FULVESTRANT 250 MG/5 ML IM ONE; +OMNIPAQUE 350 MG/ML, 100ML BOTTLE ONE
== END | disposition home or self-care (01) ==
LOC: CFH 11:16
PROVIDERS: ATTEND Internal Medicine Hematology & Oncology
DX: C50.919 Malignant neoplasm of unspecified site of unspecified female breast (principal); D16.9 Benign neoplasm of bone and articular cartilage, unspecified; J90 Pleural effusion, not elsewhere classified; J98.11 Atelectasis; K57.90 Diverticulosis of intestine, part unspecified, without perforation or abscess without bleeding
CPT/HCPCS: 71260; 74177; Q9967

== ENCOUNTER → 2019-06-20 | Outpatient (CLI) | payer MEDICARE ==
[~2019-06-20] VITALS: Ht 157.5 cm; Wt 75.9 kg
[~2019-06-20] MED LIST changes: +FULVESTRANT 250 MG/5 ML IM ONE; -LETR2.5T PO; +LETR2.5T3 PO; -OMNIPAQUE 350 MG/ML, 100ML BOTTLE ONE; +ZOLEDRONIC ACID 3 MG in SODIUM CHLORIDE 0.9% 100 ML IVPB ONE
[2019-06-20 11:35] VITALS: BP 146/81
[2019-06-20 11:55] LABS: MEAN CORPUSCULAR HEMOGLOBIN 36.8 pg (27.0-34.8); MEAN CORPUSCULAR HGB CONC 34.7 g/dL (32.4-35.8); MEAN PLATELET VOLUME 6.8 fL (7.4-10.4); PLATELET COUNT 168 x10^3/uL (130-400); RED BLOOD COUNT 2.52 x10^6/uL (3.82-5.3); RED CELL DISTRIBUTION WIDTH 17.5 % (9.6-15.2)
[2019-06-20 12:08] LABS: ALANINE AMINOTRANSFERASE 15 U/L (12-78); ALBUMIN 3.2 g/dL (3.4-5.0); ANION GAP 6 mmol/L (5-15); CALCIUM 8.2 mg/dL (8.5-10.1); CHLORIDE 106 mmol/L (98-107); CREATININE 1.35 mg/dL (0.55-1.02)
[2019-06-20 12:10] LABS: ALKALINE PHOSPHATASE 54 U/L (45-117); BILIRUBIN,TOTAL 0.7 mg/dL (0.2-1.0); TOTAL PROTEIN 6.9 g/dL (6.4-8.2)
[2019-06-20 12:44] LABS: MD YES
[2019-06-20 12:47] LABS: <PLATELET ESTIMATE> ADEQUATE; <PLT MORPHOLOGY> NORMAL PLT MORPH; ANISOCYTOSIS 1+; BAND#(MANUAL) 0.02 x10^3/uL; BANDS%(MANUAL) 1 % (0-7); BASOS#(MANUAL) 0.07 x10^3/uL (0-0.1); BASOS% (MANUAL) 4 % (0-1); EOS#(MANUAL) 0.03 x10^3/uL (0.0-0.4); EOS% (MANUAL) 2 % (1-7); LYMPH#(MANUAL) 0.77 x10^3/uL (1-3.4); LYMPHS% (MANUAL) 45 % (22-44); MONOS#(MANUAL) 0.14 x10^3/uL (0.3-2.7); MONOS% (MANUAL) 8 % (2-9); OVALOCYTES 1+; POLYCHROMASIA 1+; SEG#(MANUAL) 0.68 x10^3/uL (1.8-6.8); SEGS% (MANUAL) 40 % (42-75)
== END | disposition home or self-care (01) ==
LOC: INFUSION 06:24
PROVIDERS: ATTEND Internal Medicine Hematology & Oncology
DX: Z51.11 Encounter for antineoplastic chemotherapy (principal); C50.919 Malignant neoplasm of unspecified site of unspecified female breast; C79.51 Secondary malignant neoplasm of bone; C78.01 Secondary malignant neoplasm of right lung; I11.0 Hypertensive heart disease with heart failure; I50.9 Heart failure, unspecified; Z17.0 Estrogen receptor positive status [ER+]; Z87.891 Personal history of nicotine dependence; Z90.710 Acquired absence of both cervix and uterus
CPT/HCPCS: 36415; 80053; 85025; 96365; 96402; J3489; J9395

== ENCOUNTER → 2019-07-18 | Outpatient (CLI) | payer MEDICARE ==
[~2019-07-18] VITALS: Ht 157.5 cm; Wt 74.9 kg
[~2019-07-18] MED LIST changes: -ZOLEDRONIC ACID 3 MG in SODIUM CHLORIDE 0.9% 100 ML IVPB ONE
[2019-07-18 12:00] VITALS: BP 114/73
[2019-07-18 12:33] LABS: ALANINE AMINOTRANSFERASE 15 U/L (12-78); ALBUMIN 3.2 g/dL (3.4-5.0); ANION GAP 6 mmol/L (5-15); CHLORIDE 111 mmol/L (98-107); CREATININE 1.84 mg/dL (0.55-1.02); MEAN CORPUSCULAR HEMOGLOBIN 37.1 pg (27.0-34.8); MEAN CORPUSCULAR HGB CONC 34.5 g/dL (32.4-35.8); MEAN CORPUSCULAR VOLUME 107.5 fL (80-100); MEAN PLATELET VOLUME 6.4 fL (7.4-10.4); PLATELET COUNT 182 x10^3/uL (130-400); RED BLOOD COUNT 2.59 x10^6/uL (3.82-5.3); RED CELL DISTRIBUTION WIDTH 15.6 % (9.6-15.2)
[2019-07-18 12:35] LABS: ALKALINE PHOSPHATASE 53 U/L (45-117); BILIRUBIN,TOTAL 0.6 mg/dL (0.2-1.0); TOTAL PROTEIN 6.7 g/dL (6.4-8.2)
[2019-07-18 12:51] LABS: BASOPHILS # (AUTO) 0.02 x10^3/uL (0-0.1); BASOPHILS % (AUTO) 1 % (0-1); EOSINOPHILS # (AUTO) 0.04 x10^3/uL (0-0.4); EOSINOPHILS % (AUTO) 2 % (1-7); LYMPHOCYTES # (AUTO) 0.59 x10^3/uL (1-3.4); LYMPHOCYTES % (AUTO) 31 % (22-44); MD SCAN; MONOCYTES # (AUTO) 0.15 x10^3/uL (0.2-0.8); MONOCYTES % (AUTO) 8 % (2-9); NEUTROPHILS # (AUTO) 1.09 x10^3/uL (1.8-6.8); NEUTROPHILS % (AUTO) 58 % (42-75)
== END | disposition home or self-care (01) ==
LOC: INFUSION 11:29
PROVIDERS: ATTEND Internal Medicine Hematology & Oncology
DX: Z51.11 Encounter for antineoplastic chemotherapy (principal); C79.51 Secondary malignant neoplasm of bone; C50.919 Malignant neoplasm of unspecified site of unspecified female breast; C78.01 Secondary malignant neoplasm of right lung; I11.0 Hypertensive heart disease with heart failure; I50.9 Heart failure, unspecified; Z87.891 Personal history of nicotine dependence; Z17.0 Estrogen receptor positive status [ER+]; Z90.710 Acquired absence of both cervix and uterus
CPT/HCPCS: 36415; 80053; 85025; 96402; J9395

== ENCOUNTER → 2019-11-02 | Outpatient (CLI) | payer MEDICARE ==
[~2019-11-02] MED LIST changes: -FULVESTRANT 250 MG/5 ML IM ONE
== END | disposition home or self-care (01) ==
LOC: CFH 12:23
PROVIDERS: ATTEND Internal Medicine Hematology & Oncology
DX: C79.51 Secondary malignant neoplasm of bone (principal); K57.90 Diverticulosis of intestine, part unspecified, without perforation or abscess without bleeding; J98.11 Atelectasis; J90 Pleural effusion, not elsewhere classified
CPT/HCPCS: 71250; 74176

== ENCOUNTER → 2019-11-09 | Outpatient (CLI) | payer MEDICARE | END | disposition home or self-care (01) | LOC: CFH 09:31 | PROVIDERS: ATTEND Internal Medicine | DX: J90 Pleural effusion, not elsewhere classified (principal); J18.9 Pneumonia, unspecified organism; J44.9 Chronic obstructive pulmonary disease, unspecified; Q79.1 Other congenital malformations of diaphragm | CPT/HCPCS: 71046 ==

== ENCOUNTER 2019-11-28 12:04 | Outpatient (CLI) | payer MEDICARE | END 2019-11-28 23:59 | disposition home or self-care (01) | LOC: CFH 12:04 | PROVIDERS: ATTEND Internal Medicine Hematology & Oncology | DX: C78.01 Secondary malignant neoplasm of right lung (principal); C79.51 Secondary malignant neoplasm of bone; C50.919 Malignant neoplasm of unspecified site of unspecified female breast; M25.775 Osteophyte, left foot; Z17.0 Estrogen receptor positive status [ER+] ==

== ENCOUNTER 2019-12-07 09:47 | Outpatient (CLI) | payer MEDICARE | END 2019-12-07 23:59 | disposition home or self-care (01) | LOC: CFH 09:47 | PROVIDERS: ATTEND Internal Medicine Hematology & Oncology | DX: C50.911 Malignant neoplasm of unspecified site of right female breast (principal); C79.51 Secondary malignant neoplasm of bone; M48.54XA Collapsed vertebra, not elsewhere classified, thoracic region, initial encounter for fracture; J90 Pleural effusion, not elsewhere classified; J98.11 Atelectasis | CPT/HCPCS: 71250 ==

== ENCOUNTER → 2019-12-08 | Outpatient (CLI) | payer MEDICARE | END | disposition home or self-care (01) | LOC: ROC 08:04 | PROVIDERS: ATTEND Radiology Radiation Oncology | DX: C79.51 Secondary malignant neoplasm of bone (principal); R59.0 Localized enlarged lymph nodes; Z85.3 Personal history of malignant neoplasm of breast; Z90.11 Acquired absence of right breast and nipple | CPT/HCPCS: 99213; G0463 ==

== ENCOUNTER 2019-12-20 08:00 | Outpatient (CLI) | payer MEDICARE | END 2019-12-20 23:59 | disposition home or self-care (01) | LOC: PETCFH 08:00 | PROVIDERS: ATTEND Radiology Radiation Oncology | DX: Z02.9 Encounter for administrative examinations, unspecified (principal) ==

== ENCOUNTER → 2020-01-04 | Outpatient (CLI) | payer MEDICARE | END | disposition home or self-care (01) | LOC: PETCFH 08:55 | PROVIDERS: ATTEND Internal Medicine Hematology & Oncology | DX: C50.911 Malignant neoplasm of unspecified site of right female breast (principal); J90 Pleural effusion, not elsewhere classified; J98.11 Atelectasis; Z90.11 Acquired absence of right breast and nipple | CPT/HCPCS: 78815; A9552 ==

== ENCOUNTER 2020-02-09 08:42 | Outpatient (CLI) | payer MEDICARE | END 2020-02-09 23:59 | disposition home or self-care (01) | LOC: ROC 08:42 | PROVIDERS: ATTEND Radiology Radiation Oncology | DX: C79.51 Secondary malignant neoplasm of bone (principal); C77.8 Secondary and unspecified malignant neoplasm of lymph nodes of multiple regions; J44.9 Chronic obstructive pulmonary disease, unspecified; I11.0 Hypertensive heart disease with heart failure; I50.9 Heart failure, unspecified; Z85.3 Personal history of malignant neoplasm of breast; Z90.11 Acquired absence of right breast and nipple | CPT/HCPCS: 99212; G0463 ==

== ENCOUNTER → 2020-06-20 | Outpatient (CLI) | payer MEDICARE ==
[~2020-06-20] MED LIST changes: +LIDOCAINE 1%, 10ML ONE; -OXYC-302 PO; -OXYC-307 PO; +OXYC-380 PO; +OXYC1TAB14 PO
== END | disposition home or self-care (01) ==
LOC: RAD 09:53
PROVIDERS: ATTEND Internal Medicine Hematology & Oncology
DX: J90 Pleural effusion, not elsewhere classified (principal); C78.01 Secondary malignant neoplasm of right lung; C50.919 Malignant neoplasm of unspecified site of unspecified female breast
CPT/HCPCS: 32555; 82150; 82945; 83615; 83986; 84157; 87015; 87070; 87075; 87102; 87116; 87205; 87206; 89051

== ENCOUNTER 2020-07-13 13:40 | Outpatient (CLI) | payer MEDICARE ==
[~2020-07-13 13:40] MED LIST changes: -LIDOCAINE 1%, 10ML ONE
== END 2020-07-13 23:59 | disposition home or self-care (01) ==
LOC: RAD 13:40
PROVIDERS: ATTEND Internal Medicine Hematology & Oncology
DX: C78.01 Secondary malignant neoplasm of right lung (principal); C79.51 Secondary malignant neoplasm of bone; C50.919 Malignant neoplasm of unspecified site of unspecified female breast; J90 Pleural effusion, not elsewhere classified; J98.11 Atelectasis; Z17.0 Estrogen receptor positive status [ER+]; Z79.899 Other long term (current) drug therapy
CPT/HCPCS: 71046

== ENCOUNTER 2020-08-01 08:47 | Outpatient (CLI) | payer MEDICARE ==
[2020-08-01] MEDS ORDERED: LIDOCAINE 1%, 10ML ONE (08:57)
== END 2020-08-01 23:59 | disposition home or self-care (01) ==
LOC: RAD 08:47
PROVIDERS: ATTEND Internal Medicine Hematology & Oncology
DX: C78.01 Secondary malignant neoplasm of right lung (principal)
CPT/HCPCS: 32555

== ENCOUNTER 2020-08-13 11:23 | Outpatient (CLI) | payer MEDICARE | END 2020-08-13 23:59 | disposition home or self-care (01) | LOC: CFH 11:23 | PROVIDERS: ATTEND Internal Medicine | DX: J90 Pleural effusion, not elsewhere classified (principal); J98.11 Atelectasis; J44.9 Chronic obstructive pulmonary disease, unspecified | CPT/HCPCS: 71046 ==

== ENCOUNTER → 2020-09-06 | Outpatient (CLI) | payer MEDICARE | END | disposition home or self-care (01) | LOC: CVU 07:24 | PROVIDERS: ATTEND Internal Medicine | DX: I08.0 Rheumatic disorders of both mitral and aortic valves (principal); R01.1 Cardiac murmur, unspecified; J90 Pleural effusion, not elsewhere classified | CPT/HCPCS: 93306; 93356 ==

== ENCOUNTER → 2020-09-11 | Outpatient (CLI) | payer MEDICARE | END | disposition home or self-care (01) | LOC: CFH 11:39 | PROVIDERS: ATTEND Internal Medicine | DX: J90 Pleural effusion, not elsewhere classified (principal); R91.8 Other nonspecific abnormal finding of lung field | CPT/HCPCS: 71046 ==

== ENCOUNTER → 2020-11-12 | Outpatient (CLI) | payer MEDICARE | END | disposition home or self-care (01) | LOC: RAD 12:53 | PROVIDERS: ATTEND Internal Medicine Hematology & Oncology | DX: C78.01 Secondary malignant neoplasm of right lung (principal); C79.51 Secondary malignant neoplasm of bone; C50.919 Malignant neoplasm of unspecified site of unspecified female breast; K57.30 Diverticulosis of large intestine without perforation or abscess without bleeding; M47.816 Spondylosis without myelopathy or radiculopathy, lumbar region; Z17.0 Estrogen receptor positive status [ER+]; Z79.899 Other long term (current) drug therapy | CPT/HCPCS: 71250; 74176 ==

== ENCOUNTER → 2020-11-16 | Outpatient (CLI) | payer MEDICARE | END | disposition home or self-care (01) | LOC: RAD 09:32 | PROVIDERS: ATTEND Internal Medicine Hematology & Oncology | DX: C79.51 Secondary malignant neoplasm of bone (principal); C78.01 Secondary malignant neoplasm of right lung; C50.919 Malignant neoplasm of unspecified site of unspecified female breast; Z79.899 Other long term (current) drug therapy; Z17.0 Estrogen receptor positive status [ER+] | CPT/HCPCS: 78306; A9503 ==

== ENCOUNTER 2020-12-25 14:36 | Outpatient (CLI) | payer MEDICARE ==
[2020-12-25] MEDS ORDERED: LIDOCAINE 1%, 10ML ONE (14:47)
== END 2020-12-25 23:59 | disposition home or self-care (01) ==
LOC: RAD 14:36
PROVIDERS: ATTEND Internal Medicine Hematology & Oncology
DX: J90 Pleural effusion, not elsewhere classified (principal); C50.919 Malignant neoplasm of unspecified site of unspecified female breast
CPT/HCPCS: 32555